=== PATIENT | female | born 1985 | race Two or more races ===

== ENCOUNTER 2024-08-25 20:55 | Emergency (ER) | payer MEDICAID, SELFPAY ==
[2024-08-25 20:57] VITALS: BMI 28.8
[2024-08-25 21:16] VITALS: BP 146/82; PULSE 66; RESP 18; TEMP 36.6; O2SAT 99
[2024-08-25] MEDS: KETOROLAC INJ 60 MG/2 ML VIAL IM (21:46)
[2024-08-25] MEDS: CYCLObenzaPRINE 5 MG TABLET PO (21:46)
--- NOTE | 2024-08-25 21:49 | EDNOTE_ITS ---
<Statement entered by Indu Stone MD - 08/25/24 23:41> As co-signing physician, I was present and available for consult prn. I concur with the plan and care as documented by the midlevel provider. ED Back Injury Pain RME/HPI General Chief Complaint: Urogenital-Female Stated Complaint: Right and left flank pain with Nausea Time Seen by Provider: 08/25/24 21:38 Arrival date/time: 08/25/24 20:55 38F with history of DM presents to ED with several days of low back pain, but denies ab pain. Patient denies dysuria/hematuria, fall/trauma, paresthesia, bowel/bladder incontinence, and fevers/chills. Pain is worse with movement. Patient works in the [employer]. Limitations: no limitations Related Data Home Medications ?Medication ?Instructions ?Recorded ?Confirmed metformin 1,000 mg tablet 1,000 mg PO BID #0 tabs 07/05 12/16 (Glucophage) PNV CMB#95/FERROUS FUMARATE/FA 1 tab PO QDAY #0 tabs 0 08/24/16 ( MULTIVITAMINS TABLET) insulin lispro 100 unit/mL 40 unit subcut AC #0 vials 08/24/16 subcutaneous solution (Humalog U-100 Insulin) insulin detemir U-100 100 unit/mL 75 unit subcut QPM # 0 vials 09/19/16 subcutaneous solution (Levemir U-100 Insulin) Previous Rx's ?Medication ?Instructions ?Recorded HYDROCODONE BIT/ACETAMINOPHEN 1 tab PO Q6HR PRN Patien t rated 09/19/16 (Vicodin 5/300) pain 7 to 8 #10 tabs ibuprofen 400 mg tablet 800 mg (2 x 400 mg) PO Q8HR PRN 09/19/16 PAIN SCALE 4-6 (Moderate #28 tabs metformin 500 mg tablet 1,000 mg (2 x 500 mg) PO BID WM #30 09/19/16 (Glucophage) tabs ibuprofen 800 mg tablet 800 mg PO QID PRN pain #14 t abs 06/16/20 Allergies Allergy/AdvReac Type Severity Reaction Status Date / Time shrimp Allergy Intermediate rash/red Verified 06/15/20 23:31 face Review of Systems Review of Systems Systems Reviewed: All systems reviewed, normal except as documented Constitutional Constitutional: Reports system reviewed and no additional complaints, except as documented, Denies fever(s) and Denies headache(s) ENT Ears, Nose, Mouth, and Throat: Denies disequilibrium and Denies headache(s) Cardiovascular Cardiovascular: Reports system reviewed and no additional complaints, except as documented, Denies chest pain and Denies dyspnea Respiratory Respiratory: Reports system reviewed and no additional complaints, except as documented, Denies cough and Denies dyspnea Gastrointestinal Gastrointestinal: Reports system reviewed and no additional complaints, except as documented, Denies abdominal pain, Denies nausea and Denies vomiting Musculoskeletal Musculoskeletal: Reports as per HPI and Reports back pain Neurologic Neurologic: Reports system reviewed and no additional complaints, except as documented, Denies confusion, Denies disequilibrium and Denies headache(s) Psychiatric Psychiatric: Denies confusion Past Medical History Past Medical History CARDIAC: Negative Cardiac Disorders or Congestive Heart Failure RESPIRATORY: Negative Chronic Obstructive Pulmonary Disease (COPD) or Asthma GENITOURINARY: Negative Renal Disease REPRODUCTIVE: Positive Previous Pregnancies ENDOCRINE: Positive Diabetes Mellitus Type 1 and Diabetes Mellitus Type 2 HEMATOLOGIC: Negative Sickle Cell Disease Surgical History SURGICAL: Positive Section Social History SMOKING STATUS: Never smoker SUBSTANCE USE: does not use ED Exam General Limitations: Present no limitations General appearance: Present alert and in no apparent distress Head Head exam: Present atraumatic Eye Eye exam: Present normal appearance, PERRL and EOMI ENT ENT exam: Present normal exam, normal oropharynx and mucous membranes moist Neck Neck exam: Present normal inspection, full ROM and trachea midline Chest Chest inspection: Present normal inspection and symmetric chest wall rise Respiratory Respiratory exam: Present normal lung sounds bilaterally Cardiovascular Cardiovascular exam: Present regular rate, normal rhythm and normal heart sounds Abdominal Exam Abdominal exam: Present soft and normal bowel sounds Extremities Exam Extremities exam: Present normal inspection and full ROM Back Exam Back exam: Present normal inspection and full ROM Neurological Exam Neurological exam: Present alert, oriented X3 and CN II-XII intact Psychiatric Psychiatric exam: Present normal affect and normal mood Skin Skin exam: Present warm, dry, intact and normal color Course Quality Measures none Orders Category Date Time Status CYCLObenzaPRINE [Flexeril] Med 08/25/24 21:38 Discontinued 5 mg PO X1 ONE Ketorolac Inj [Toradol Inj] Med 08/25/24 21:38 Discontinued 60 mg IM X1 ONE Vital Signs Vital signs: Vital Signs Temperature 98 F 08/25/24 21:16 Pulse Rate 66 08/25/24 21:16 Respiratory Rate 18 08/25/24 21:16 Blood Pressure 146/82 H 08/25/24 21:16 Pulse Oximetry (%) 99 08/25/24 21:16 Oxygen Delivery Method Room Air 08/25/24 21:16 O2 at 99% on RA and WNLs Back Pain / Injury MDM Narrative MDM Narrative:: 38F with history of DM presents to ED with several days of low back pain, but denies ab pain. Patient denies dysuria/hematuria, fall/trauma, paresthesia, bowel/bladder incontinence, and fevers/chills. Pain is worse with movement. Patient works in the [place]. Physical exam reveals no midline back tenderness. No ab tenderness. ROM intact. Patient is afebrile, calm, and alert. Likely MSK in nature. Patient data External records reviewed:: [facility] previous records Clinical information provided by:: patient Social determinants that could affect healthcare access:: none Patient has the following chronic illnesses:: DM How is presenting disease/condition affected by chronic disease/condition?: exacerbated by Evaluation data The following diagnostics were reviewed and interpreted by me:: other (specify) (none) Lab and/or radiology exams considered but not ordered:: not ordered Interpretation Summary: n/a Medications / Prescriptions Medications or Prescriptions considered but not ordered:: ordered Medication administrations:: Medication Administration History Discontinued Medications Cyclobenzaprine HCl (Cyclobenzaprine 5 Mg Tablet) 5 mg PO X1 ONE Stop: 08/25/24 21:39 Ketorolac Tromethamine (Ketorolac Inj 60 Mg/2 Ml Vial) 60 mg IM X1 ONE Stop: 08/25/24 21:39 above Consultations Consultation(s) initiated? (list below): No Diagnosis Differential diagnosis back pain/injury: lumbar radiculopathy, sciatica, strain of lumbar region, renal colic, pyelonephritis, thoracic back pain, AAA, discitis and other (low back pain) Most likely diagnosis given after review of the tests above:: low back pain Admission Indicated Admission indicated?: not indicated Admission Request Was there a request for admission?: No Disposition Plan Disposition Plan: Discharge Discharge Attestation Discharge Attestation: The patient and all family members were given an opportunity to ask questions and understood the discharge instructions. Discharge instructions specifically effects, indications for sooner follow up or return to the emergency department, and the expected course of current diagnosis. Patient condition: Stable Discharge Plan Plan Patient Disposition: HOME (Self Care) Disposition Comment: Stable Prescriptions/Referrals Prescriptions/Med Rec: No Action metformin [Glucophage] 1,000 MG tablet 1,000 mg PO BID Qty: 0 insulin lispro [Humalog U-100 Insulin] 100 U/ML solution 40 unit Sub-Q AC Qty: 0 PNV CMB#95/FERROUS FUMARATE/FA ( MULTIVITAMINS TABLET) 1 EACH tablet 1 tab PO QDAY Qty: 0 metformin [Glucophage] 500 MG tablet 1,000 mg PO BIDWM Qty: 30 0RF ibuprofen 400 MG tablet 800 mg PO Q8HR PRN (Reason: PAIN SCALE 4-6 (Moderate) Qty: 28 0RF HYDROCODONE BIT/ACETAMINOPHEN (Vicodin 5/300) 1 TAB tablet 1 tab PO Q6HR PRN (Reason: Patient rated pain 7 to 8) Qty: 10 0RF insulin detemir U-100 [Levemir U-100 Insulin] 100 U/ML solution 75 unit Sub-Q QPM Qty: 0 ibuprofen 800 mg tablet 800 mg PO QID PRN (Reason: pain) Qty: 14 0RF Problem List Clinical Impression: Low back pain Patient/Caregiver Discharge Instructions Education Materials: ED Back Pain (Acute or Chronic) Additional Instructions: Please follow-up with PCP within 24-48 hours and return immediately if symptoms worsen. If problem persists, recommend outpatient PT and/or MRI follow-up. In the meantime, rest, use ice/heat, and/or compression. Ibuprofen/Tylenol can be used simultaneously for greater fever/pain control. Print Language: Afghan Stand Alone Forms: Patient Portal Info Letter SHANNAN/SANDRINE Supervising Physician SHANNAN/SANDRINE Supervising Physician: Dr. Stone
== END 2024-08-25 22:00 | disposition home or self-care (01) ==
PROVIDERS: Emergency Provider Emergency Medicine; PCP Family Medicine
DX: M54.50 Low back pain, unspecified (principal); E11.9 Type 2 diabetes mellitus without complications
CPT/HCPCS: 81001; 81025; 96372; 99283; J1885; A9270